=== PATIENT | female | born 1975 | race Hispanic/Latino ===

== ENCOUNTER 2020-04-07 07:23 | Emergency (ER) | payer BC ==
[~2020-04-07] VITALS: Ht 157.5 cm; Wt 86.3 kg
[~2020-04-07 07:23] MED LIST: ALBUTEROL2.5 MG/3 M IN; AMOXICILLIN/PO500 MG PO; AMOXICILLIN500 MG PO; AMOXICILLIN875 MG OR; ANTIVERT12.5 MG PO; ANTIVERT25 MG OR; AUGMENTIN875TAB PO; BACTRIM DS1 TAB PO; CLARITIN10 M1 PO; DEPO-MEDROL80 MG/ML IM; FLEXERIL OR; FLONASE NASAL50 MCG; HYDROCORTISO2.51 EX; LISINOPRIL10 MG PO; LORTAB 5 OR; MEDDOSEPAK OR; NAPROSYN500 MG PO; NAPROXEN500 MG PO; NO; NYSTATIN100000 M1 PO; PAROXETINE20 MG PO; PAROXETINE30 MG PO; PAROXETINE40 MG PO; TESSALON PER100 MG PO; TESSALON200 MG PO; TORADOL IM; ZITHROMAX250 MG PO; ZITHROMAX500 MG PO; ZOFRAN ODT4 MG PO; ZOFRAN ODT8 MG SL; [UNRECOGNIZED DRUG - OTHER] TOP; [UNRECOGNIZED DRUG - REMARK]; no home meds
[2020-04-07 08:28] LABS: HEMATOCRIT 40.7 % (37.0-47.0); HEMOGLOBIN 13.6 g/dl (12.0-16.0); IMMATURE GRANULOCYTES 0.4 % (0.0-5.0); MEAN CELL VOLUME 87.3 fL CALC (80.0-100.0); MEAN CORPUSCULAR HGB 29.2 pG CALC (26.0-32.0); MEAN CORPUSCULAR HGB CONC 33.4 g/dL CAL (32.0-36.0); NEUT# 6.75 thou/uL (2.00-7.15); RED BLOOD COUNT 4.66 mill/uL (4.20-5.60); RED CELL DISTRI WIDTH 12.4 % (11.5-15.5)
[2020-04-07 08:34] LABS: URINE BILIRUBIN - DIPSTICK NEGATIVE (NEGATIVE); URINE COLOR YELLOW; URINE GLUCOSE - DIPSTICK NEGATIVE (NEGATIVE); URINE KETONE NEGATIVE (NEGATIVE); URINE NITRITE - DIPSTICK NEGATIVE (Negative); URINE PH 5.5 (4.5-8.0); URINE PROTEIN - DIPSTICK NEGATIVE (NEG-TRACE); URINE SPECIFIC GRAVITY 1.025; URINE UROBILINOGEN - DIPSTICK 0.2 E.U./dL (0.2)
[2020-04-07 08:41] LABS: URINE LEUK ESTERASE SMALL (NEGATIVE)
[2020-04-07 08:42] LABS: ALBUMIN 3.8 g/dL (3.2-5.0); ALKALINE PHOSPHATASE 70 u/l (38-126); BUN 12 mg/dL (7-17); BUN/CREATININE RATIO 15 (12-20 (CALC)); CHLORIDE 106 mmol/l (95-108); CREATININE 0.8 mg/dL (0.5-1.0); GFR > 60 ML/MIN (>=60 (CALC)); GFR FOR AFR.AMER. > 60 ML/MIN (>=60 (CALC)); LIPASE 72 u/l (23-300); POTASSIUM 4.1 mmol/l (3.5-5.1); SGOT/AST 21 u/l (14-36); SODIUM 138 mmol/l (137-146); TOTAL PROTEIN 7.3 g/dL (6.3-8.2)
[2020-04-07 08:55] LABS: URINE BLOOD DIPSTICK NEGATIVE (NEGATIVE)
[2020-04-07 08:57] LABS: URINE BACTERIA RARE hpf; URINE EPITHELIAL CELLS RARE EPI/hpf (0-FEW); URINE RBC 0-2 RBC/hpf (0-5)
[2020-04-07 09:00] LABS: ANION GAP 7 (6-22 (CALC)); BILIRUBIN, TOTAL 0.2 mg/dL (0.0-1.4); CARBON DIOXIDE 29 mmol/l (22-30)
[2020-04-07 09:12] LABS: TSH, 3RD GENERATION 3.03 uIU/mL (0.47 - 4.68)
[2020-04-07] MEDS ORDERED: VOLTAREN1%GEL TOP (11:15)
[2020-04-07 11:44] VITALS: BP 139/71
--- NOTE | 2020-04-08 10:56 | NUR ---
04/07/20 PT note Patient is screened for intervention. I did speak with her and she has an active referral fro outpatient PT. We will follow her up as an outpatient as her back and hip pain are not quite as bad as when she arrived
== END 2020-04-07 12:01 | disposition home or self-care (01) | DRG 552 ==
LOC: ED 07:23
PROVIDERS: Family Medicine
DX: M54.5 Low back pain (principal); N20.0 Calculus of kidney

== ENCOUNTER 2024-05-18 20:49 | Emergency (ER) | payer BC ==
[~2024-05-18] VITALS: Ht 157.5 cm; Wt 102.0 kg
[~2024-05-18 20:49] MED LIST changes: +ADLT ASA LOW81 MG PO; +AMLODIPINE BESY10 MG PO; +ATORVASTATIN CA20 MG PO; +KEFLEX500 MG PO; +TAMSULOSIN0.4 MG PO; +TORADOL PO; +VOLTAREN1%GEL TOP
[2024-05-18 21:36] VITALS: BP 123/81
[2024-05-18 21:45] VITALS: BP 114/62
[2024-05-18] MEDS ORDERED: BACTRIM DS1 TAB PO (21:54)
[2024-05-18] MEDS ORDERED: CYCLOBENZAPRINE10 MG PO (21:54)
[2024-05-18] MEDS ORDERED: KEFLEX500 MG PO (21:54)
[2024-05-18] MEDS ORDERED: NABUMETONE750 MG PO (21:54)
[2024-05-18] MEDS ORDERED: KETOROLAC TROMETHAMINE 30 MG/ML SDV IM ONE (21:55)
[2024-05-18] MEDS ORDERED: DEXAMETHASONE SOD. PHOSPHATE 10 MG/ML VIAL IM ONE (21:55)
[2024-05-18 22:01] VITALS: BP 96/56
[2024-05-18 22:16] VITALS: BP 113/87
[2024-05-18 22:22] VITALS: BP 113/87
== END 2024-05-18 22:42 | disposition home or self-care (01) | DRG 603 ==
LOC: ED 20:49
DX: L03.116 Cellulitis of left lower limb (principal); M54.50 Low back pain, unspecified; I10 Essential (primary) hypertension

== ENCOUNTER 2024-06-20 11:04 | Emergency (ER) | payer BC ==
[~2024-06-20] VITALS: Ht 157.5 cm; Wt 102.0 kg
[~2024-06-20 11:04] MED LIST changes: +CYCLOBENZAPRINE10 MG PO; +NABUMETONE750 MG PO
[2024-06-20 11:28] VITALS: BP 129/77
[2024-06-20 11:30] VITALS: BP 122/75
[2024-06-20 11:42] VITALS: BP 92/56
[2024-06-20 12:00] VITALS: BP 111/76
[2024-06-20 12:01] LABS: BASO% 0.4 % (0-3); HEMATOCRIT 42.9 % (37.0-47.0); HEMOGLOBIN 14.4 g/dl (12.0-16.0); IMMATURE GRANULOCYTES 0.4 % (0.0-5.0); LYMPH% 30.4 % (15-41); MEAN CELL VOLUME 88.3 fL CALC (80.0-100.0); MEAN CORPUSCULAR HGB 29.6 pG CALC (26.0-32.0); MEAN CORPUSCULAR HGB CONC 33.6 g/dL CAL (32.0-36.0); MONO% 5.6 % (2-13); NEUT# 6.41 thou/uL (2.00-7.15); NEUT% 61.2 % (42-76); RED BLOOD COUNT 4.86 mill/uL (4.20-5.60); RED CELL DISTRI WIDTH 12.2 % (11.5-15.5)
[2024-06-20 12:08] LABS: ALKALINE PHOSPHATASE 105 u/l (38-126); ANION GAP 12 (6-22 (CALC)); BILIRUBIN, TOTAL 0.6 mg/dL (0.02-1.3); BUN 12 mg/dL (7-17); BUN/CREATININE RATIO 16 (12-20 (CALC)); CHLORIDE 105 mmol/l (95-108); CREATININE 0.7 mg/dL (0.5-1.0); ESTIMATED GFR 106 ML/MIN (>=90 (CALC)); POTASSIUM 3.5 mmol/l (3.5-5.1); SGOT/AST 53 u/l (14-36); SODIUM 139 mmol/l (137-146); TOTAL PROTEIN 7.5 g/dL (6.3-8.2)
[2024-06-20] MEDS ORDERED: KETOROLAC TROMETHAMINE 30 MG/ML SDV IV ONE (12:20)
[2024-06-20 12:21] LABS: CARBON DIOXIDE 26 mmol/l (22-30)
[2024-06-20 13:27] LABS: URINE BILIRUBIN - DIPSTICK Negative (NEGATIVE); URINE BLOOD DIPSTICK Negative (NEGATIVE); URINE GLUCOSE - DIPSTICK Negative (NEGATIVE); URINE KETONE Negative (NEGATIVE); URINE LEUK ESTERASE Negative (NEGATIVE); URINE NITRITE - DIPSTICK Negative (Negative); URINE PH 6.5 (4.5-8.0); URINE PROTEIN - DIPSTICK Negative (NEG-TRACE); URINE SPECIFIC GRAVITY 1.025
[2024-06-20 13:34] LABS: URINE COLOR Yellow
[2024-06-20] MEDS ORDERED: METHOCARBAMOL500 MG PO (13:51)
[2024-06-20] MEDS ORDERED: NAPROXEN500 MG PO (13:51)
[2024-06-20 13:57] VITALS: BP 111/76
== END 2024-06-20 14:00 | disposition home or self-care (01) | DRG 392 ==
LOC: ED 11:04
PROVIDERS: Family Medicine
DX: R10.33 Periumbilical pain (principal)
CPT/HCPCS: Q9967